=== PATIENT | female | born 2000 | race Caucasian/White ===

== ENCOUNTER 2024-07-20 21:35 | Emergency (ER) | payer OTHER ==
[~2024-07-20] VITALS: Ht 175.3 cm; Wt 80.2 kg
[2024-07-20 22:27] LABS: Basophils # (auto) 0 10 ^3/uL (0-0.2); Basophils % (auto) 0.1 % (0.0-2.0); Eosinophils # (auto) 0.1 10 ^3/uL (0-0.8); Eosinophils % (auto) 0.8 % (0.0-7.0); Hematocrit 41.1 % (36.0-46.0); Hemoglobin 14.1 g/dL (12.2-16.2); Lymphocytes # (auto) 0.8 10 ^3/uL (0.4-5.4); Lymphocytes % (auto) 9.8 % (10.0-50.0); Mean Corpuscular Hemoglobin 29.4 pg (28.0-32.0); Mean Corpuscular Hgb Conc. 34.3 g/dL (32.0-36.0); Mean Corpuscular Volume 85.7 fL (80.0-100.0); Monocytes # (auto) 0.8 10 ^3/uL (0-1.3); Monocytes % (auto) 10.3 % (0.0-12.0); Neutrophils # (auto) 6.4 10 ^3/uL (1.6-8.6); Platelet Count (auto) 322 10^3/uL (140-450); Red Cell Distribution Width 13.6 % (11.8-14.3); White Blood Cell 8.1 10^3/uL (4.4-10.8)
[2024-07-20 22:34] LABS: Chloride 106 mmol/L (98-107); Potassium 3.8 mmol/L (3.5-5.1); Sodium 138 mmol/L (136-145)
[2024-07-20 22:35] LABS: Anion Gap 7 (5-15); Carbon Dioxide 25 mmol/L (20-31)
[2024-07-20 22:36] LABS: Calcium 10.2 mg/dL (8.7-10.4)
[2024-07-20 22:40] LABS: BUN/Creatinine Ratio 7.1 (10.0-20.0); Blood Urea Nitrogen 8 mg/dL (9-23); Glucose 83 mg/dL (74-106)
[2024-07-21 00:04] VITALS: BP 122/57; PULSE 97; RESP 16; TEMP 98.3; O2SAT 98
[2024-07-21] MEDS: LORazepam 0.5 MG TAB PO ONE (00:09)
== END 2024-07-21 01:03 | disposition home or self-care (01) ==
LOC: ER 21:35
DX: R06.02 Shortness of breath (principal); R00.2 Palpitations; F17.290 Nicotine dependence, other tobacco product, uncomplicated
CPT/HCPCS: 36415; 71046; 80048; 84443; 84484; 85025; 93005